=== PATIENT | female | born 1940 | race Caucasian/White ===

== ENCOUNTER → 2017-12-15 | Outpatient (CLI) | payer MEDICARE ==
[~2017-12-15] MED LIST: AMLO5 PO; ASPI81CH PO; ATOR40TA PO; CLOP75; CLOP75 PO; Cilostazol50 MG PO; ESCI10; ESCI10 PO; LAVAP17G PO; PANT40 PO; Percocet 5-3251 EACH PO; ROSU10TA; Roxicet 5-3251 EACH PO; Senna8.6 MG PO; Zofran Odt8 MG SL
[2017-12-16 04:00] LABS: Source Cervix
== END | disposition home or self-care (01) ==
LOC: LAB SHORT 11:18 → LAB 11:18
PROVIDERS: Obstetrics & Gynecology
DX: Z12.4 Encounter for screening for malignant neoplasm of cervix (principal)
CPT/HCPCS: G0123

== ENCOUNTER 2019-01-06 19:15 | Emergency (ER) | payer MEDICARE ==
[~2019-01-06] VITALS: Ht 172.7 cm; Wt 71.2 kg
== END 2019-01-06 21:19 | disposition home or self-care (01) ==
LOC: ER 19:15
DX: S06.9X9A Unspecified intracranial injury with loss of consciousness of unspecified duration, initial encounter (principal); S01.112A Laceration without foreign body of left eyelid and periocular area, initial encounter; W18.30XA Fall on same level, unspecified, initial encounter; Z91.013 Allergy to seafood; Z88.1 Allergy status to other antibiotic agents; Z91.048 Other nonmedicinal substance allergy status; Z79.899 Other long term (current) drug therapy; Z79.82 Long term (current) use of aspirin; Z87.891 Personal history of nicotine dependence
CPT/HCPCS: 12011; 70450; 72125; 99284-25

== ENCOUNTER 2019-01-16 09:58 | Emergency (ER) | payer MEDICARE ==
[~2019-01-16] VITALS: Ht 170.2 cm; Wt 70.8 kg
[2019-01-16] MEDS ORDERED: ROSU5 PO (11:48)
[2019-01-16] MEDS ORDERED: LISI5 PO (11:48)
[2019-01-16] MEDS ORDERED: DULO30 PO (11:48)
[2019-01-16] MEDS ORDERED: CLOP75 PO (11:49)
[2019-01-16] MEDS ORDERED: Norco 5-325 Ta1 EACH PO (11:49)
[2019-01-16] MEDS ORDERED: Percocet 5-3251 EACH PO (12:46)
== END 2019-01-16 13:12 | disposition home or self-care (01) ==
LOC: ER 09:58
DX: M16.11 Unilateral primary osteoarthritis, right hip (principal); Z91.013 Allergy to seafood; Z88.8 Allergy status to other drugs, medicaments and biological substances; Z88.1 Allergy status to other antibiotic agents; Z79.899 Other long term (current) drug therapy; Z79.82 Long term (current) use of aspirin; Z87.891 Personal history of nicotine dependence
CPT/HCPCS: 73502; 73610; 99283-25

== ENCOUNTER 2019-02-16 08:51 | Inpatient (IN) | payer MEDICARE ==
[~2019-02-16] VITALS: Ht 167.6 cm; Wt 72.0 kg
[~2019-02-16 08:51] MED LIST changes: +DULO30 PO; +LISI5 PO; +Norco 5-325 Ta1 EACH PO; +ROSU5 PO
[2019-02-16] MEDS ORDERED: MAGOXI400 PO (09:40)
[2019-02-16] MEDS ORDERED: CYAN1000I IM (09:41)
[2019-02-16] MEDS ORDERED: CHOL10002 PO (09:41)
--- NOTE | 2019-02-16 10:14 | NUR ---
History, Chart, Medications and Allergies reviewed before start of procedure. Lungs clear T/O to Auscultation.
--- NOTE | 2019-02-16 19:18 | NUR ---
SHIFT SUMMARY PT HAS DONE WELL POST OP BUT WAS DROWSY INITIALLY. UP TO BATHROOM AND CHAIR FOR DINNER.
[2019-02-17 05:33] LABS: BASOPHILS ABSOLUTE AUTO 0.01 K/mm3 (0.00-0.23); BASOPHILS PERCENT AUTO 0 % (0-2); EOSINOPHILS ABSOLUTE AUTO 0.02 K/mm3 (0.00-0.68); EOSINOPHILS PERCENT AUTO 0 % (0-6); Hematocrit 30.1 % (33.0-51.0); Hemoglobin 9.6 g/dL (11.5-16.0); IMMATURE GRAN ABSOLUTE AUTO 0.04 K/mm3 (0.00-0.10); IMMATURE GRAN PERCENT AUTO 1 % (0-1); LYMPHOCYTES ABSOLUTE AUTO 1.35 K/mm3 (0.84-5.20); LYMPHOCYTES PERCENT AUTO 16 % (21-46); MONOCYTES ABSOLUTE AUTO 0.89 K/mm3 (0.16-1.47); MONOCYTES PERCENT AUTO 10 % (4-13); Mean Corpuscular HGB Conc 31.9 g/dL (31.5-36.5); Mean Corpuscular Volume 100 fL (80-100); Mean Platelet Volume 8.9 fL (9.1-12.4); NEUTROPHILS ABSOLUTE AUTO 6.36 K/mm3 (1.96-9.15); NEUTROPHILS PERCENT AUTO 73 % (41-73); Platelet Count 217 K/mm3 (150-400); RDW Coefficient Variation 12.9 % (11.7-14.2); RDW Standard Deviation 47.7 fL (35.1-46.3); White Blood Cell Count 8.67 K/mm3 (4.00-11.30)
[2019-02-17 05:37] LABS: Magnesium, Blood 2.1 mg/dL (1.6-2.4)
[2019-02-17 05:38] LABS: Anion Gap 5 mmol/L (6-16); Blood Urea Nitrogen 16 mg/dL (8-24); Bun/Creatinine Ratio 34.6 (12.0-20.0); CO2, Blood 26 mmol/L (21-32); Calcium, Blood 8.3 mg/dL (8.5-10.1); Chloride, Blood 108 mmol/L (98-108); Creatinine, Blood 0.46 mg/dL (0.40-1.00); Glomerular Filtration Rate >60 (60-); Glucose, Blood 102 mg/dL (70-99); Potassium, Blood 4.1 mmol/L (3.5-5.5); Sodium, Blood 139 mmol/L (136-145)
--- NOTE | 2019-02-17 06:20 | NUR ---
SHIFT SUMMARY PT POD#1 RIGHT ABDIAZIZ. AAOX4. DISCOMFORT CONTROLLED WITH 5MG ROXICODONE Q4-5P. NO NAUSEA/EMESIS. DRESSING TO RIGHT HIP C/D/I. PT UP IN HALLS TO AMBULATE X3 THIS SHIFT, SBA WITH FWW. PT UP TO CHAIR THIS AM FOR BREAKFAST. NADN. CALL LIGHT IN REACH.
[2019-02-17] MEDS ORDERED: ASPI325EC PO (12:27)
[2019-02-17] MEDS ORDERED: Percocet 5-3251 EACH PO (12:29)
--- NOTE | 2019-02-17 13:19 | NUR ---
DISCHARGE SUMMARY PT A&OX4, VSS, LEFT FLOOR VIA WC WITH GRAPHIC DESIGN INTERN, TO GO HOME WITH S.O. WITH ALL PERSONAL POSSESSIONS INCLUDING DISCHARGE PACKET W/1 NARC SCRIPT, 1 ASA SCRIPT. DC INSTRUCTIONS PROVIDED. PT REP UNDERSTANDING THOSE INSTRUCTIONS INCLUDING DRESSING CHANGES, 2 WK FU WITH SG, PHYSICAL THERAPY STARTS THURSDAY, SHOWER OK, NO TUB/JACUZZI, SHORT FREQ AMBULATION W/FWW, ICE AND ELEVATE AT REST. IV DC'D.
--- NOTE | 2019-02-21 09:37 | NUR ---
02/21/19 0937 Manuela Bernal VERIFICATIONS: EDIT CHART.
== END 2019-02-17 12:49 | disposition home or self-care (01) | DRG 470 ==
LOC: SURS 08:51 → PRE IP 10:30 → SURS 14:41
PROVIDERS: ADMIT Orthopaedic Surgery
PROC: 0SR904A Replacement of Right Hip Joint with Ceramic on Polyethylene Synthetic Substitute, Uncemented, Open Approach (ICD-10-PCS; principal; 2019-02-15)
DX: M16.11 Unilateral primary osteoarthritis, right hip (principal); G35 Multiple sclerosis; E78.5 Hyperlipidemia, unspecified; E78.00 Pure hypercholesterolemia, unspecified; Z88.8 Allergy status to other drugs, medicaments and biological substances; Z91.013 Allergy to seafood; Z95.1 Presence of aortocoronary bypass graft
CPT/HCPCS: 72170; 80048; 83735; 85025; 88300; 97116; 97162; 97165; 97530; 97535; C1713; C1776; J0171; J0690; J0735; J1100; J1885; J2250; J2405; J2704; J2795; J3010; J7120

== ENCOUNTER 2020-06-16 13:25 | Observation (INO) | payer MEDICARE, OTHER ==
[~2020-06-16] VITALS: Ht 170.2 cm; Wt 72.4 kg
[~2020-06-16 13:25] MED LIST changes: +ASPI325EC PO; +MAGOXI400 PO; +VITAMIN D31000 UNI1 PO; +Vitamin B-121000 MCG PO
[2020-06-16 13:54] LABS: BASOPHILS ABSOLUTE AUTO 0.05 K/mm3 (0.00-0.23); BASOPHILS PERCENT AUTO 1 % (0-2); EOSINOPHILS ABSOLUTE AUTO 0.26 K/mm3 (0.00-0.68); EOSINOPHILS PERCENT AUTO 3 % (0-6); Hematocrit 43.2 % (33.0-51.0); Hemoglobin 14.1 g/dL (11.5-16.0); IMMATURE GRAN ABSOLUTE AUTO 0.02 K/mm3 (0.00-0.10); IMMATURE GRAN PERCENT AUTO 0 % (0-1); LYMPHOCYTES ABSOLUTE AUTO 3.12 K/mm3 (0.84-5.20); LYMPHOCYTES PERCENT AUTO 38 % (21-46); MONOCYTES ABSOLUTE AUTO 0.55 K/mm3 (0.16-1.47); MONOCYTES PERCENT AUTO 7 % (4-13); Mean Corpuscular HGB 29.7 pg (26.0-34.0); Mean Corpuscular HGB Conc 32.6 g/dL (31.5-36.5); Mean Corpuscular Volume 91 fL (80-100); Mean Platelet Volume 8.8 fL (9.1-12.4); NEUTROPHILS ABSOLUTE AUTO 4.19 K/mm3 (1.96-9.15); NEUTROPHILS PERCENT AUTO 51 % (41-73); Platelet Count 284 K/mm3 (150-400); RDW Coefficient Variation 13.3 % (11.7-14.2); RDW Standard Deviation 45.2 fL (35.1-46.3); Red Blood Cell Count 4.75 M/mm3 (3.80-5.20); White Blood Cell Count 8.19 K/mm3 (4.00-11.30)
[2020-06-16 14:19] LABS: Alanine Aminotransfer (ALT/SGP 28 U/L (12-78); Albumin, Blood 3.9 g/dL (3.4-5.0); Albumin/Globulin Ratio 1.1 (0.8-1.8); Alk Phos 108 U/L (50-136); Anion Gap 12 mmol/L (6-16); Aspartate Aminotrans (AST/SGOT 20 U/L (12-37); Bilirubin, Total 0.5 mg/dL (0.1-1.0); Blood Urea Nitrogen 22 mg/dL (8-24); Bun/Creatinine Ratio 37.7 (12.0-20.0); CO2, Blood 22 mmol/L (21-32); Calcium, Blood 9.3 mg/dL (8.5-10.1); Chloride, Blood 102 mmol/L (98-108); Creatinine, Blood 0.58 mg/dL (0.40-1.00); Globulin, Blood 3.6 g/dL (2.2-4.0); Glomerular Filtration Rate >60 (60-); Glucose, Blood 96 mg/dL (70-99); Sodium, Blood 136 mmol/L (136-145); Total Protein, Blood 7.5 g/dL (6.4-8.2); Troponin I <0.015 ng/mL (0.000-0.040)
[2020-06-16] MEDS ORDERED: CHLO25B PO (19:02)
[2020-06-16] MEDS ORDERED: PLAVIX75 MG PO (19:03)
--- NOTE | 2020-06-17 04:26 | NUR ---
SHIFT SUMMARY PT ARRIVED TO UNIT FROM ED VIA STRETCHER @ 2044. TRANSFERRED FROM STRETCHER TO STANDING SCALE THEN TO BED IND/SBA. NO COMPLAINTS OF SOB OR CHEST PAIN FOR THIS RN. SLEPT T/O SHIFT. NO ACUTE CHANGES THIS SHIFT. PT IS LAYING IN BED WITH EYES CLOSED, EVEN AND UNLABORED RESPIRATIONS. BED IN LOWERED POSITION WITH CALL LIGHT AND PERSONAL ITEM WITHIN REACH. NO APPARENT NEEDS OR DISTRESS AT THIS TIME. WILL CONTINUE TO MONITOR UNTIL REPORT GIVEN TO DAY RN.
[2020-06-17 04:42] LABS: Anion Gap 6 mmol/L (6-16); Blood Urea Nitrogen 22 mg/dL (8-24); Bun/Creatinine Ratio 31.7 (12.0-20.0); CO2, Blood 29 mmol/L (21-32); Calcium, Blood 8.8 mg/dL (8.5-10.1); Chloride, Blood 104 mmol/L (98-108); Glomerular Filtration Rate >60 (60-); Glucose, Blood 109 mg/dL (70-99); Potassium, Blood 3.8 mmol/L (3.5-5.5); Sodium, Blood 139 mmol/L (136-145); Troponin I <0.015 ng/mL (0.000-0.040)
--- NOTE | 2020-06-17 15:31 | NUR ---
SHIFT SUMMARY PT IS A/O X 4 WITH NO C/O PAIN. SHE DOES REPORT DYSPNEA ON EXERTION THIS MORNING BUT REPORTS FEELING "BETTER" THIS AFTERNOON. SHE COMPLETED HER STRESS TEST AND IS AWAITING THE DOCTOR TO COME REVIEW THE RESULTS WITH HER. SHE IS USING THE BEDSIDE COMMODE. CATTLE FEEDER REPORTS SINUS KAMILA. PT S.O. WAS AT THE BEDSIDE FOR THE AFTERNOON BUT HAS LEFT FOR THE DAY. HE REQUESTED THAT DR URBINA CALL HIM ABOUT THE STRESS TEST RESULTS WELL. DR URBINA WAS NOTIFIED THAT THE PT WAS WAITING TO SPEAK TO HER AND STATED SHE WOULD BE UP TO SEE HER. SHE IS ABLE TO MAKE HER NEEDS KNOWN AND CALLS APPROPRIATELY.
[2020-06-17] MEDS ORDERED: Vitamin D2000 UNIT PO (16:40)
[2020-06-17] MEDS ORDERED: OMEP20ER PO (16:41)
[2020-06-17] MEDS ORDERED: PANT20 PO (16:42)
--- NOTE | 2020-06-17 16:49 | NUR ---
PT DCD HOME. HER S.O. IS PICKING HER UP. MED REC FAXED TO PHARMACY ON FILE. PT WILL SCHEDULE HER F/U APPT. ALL INSTRUCTIONS REVIEWED WITH THE PT. PT PULLED HER OWN IVS OUT, PT EDUCATION WAS COMPLETED RE RISKS VS. BENEFITS OF THIS. PT REPORTS THAT SHE USED TO "WORK FOR THE [employer] SO I KNOW ABOUT THESE THINGS". PT HAS NO QUESTIONS. SHE PACKED HER OWN BELONGINGS. AND WAS ASSISTED DOWNSTAIRS BY HER FUR TRAPPER. PT STABLE UPON DC.
== END 2020-06-17 16:57 | disposition home or self-care (01) ==
LOC: ER 13:25 → MEDS 13:26
PROVIDERS: Physician Assistant; ADMIT Internal Medicine
DX: R07.9 Chest pain, unspecified (principal); I10 Essential (primary) hypertension; E87.6 Hypokalemia; K44.9 Diaphragmatic hernia without obstruction or gangrene; Z95.1 Presence of aortocoronary bypass graft; E78.5 Hyperlipidemia, unspecified; Z20.828 Contact with and (suspected) exposure to other viral communicable diseases; Z87.891 Personal history of nicotine dependence; Z79.899 Other long term (current) drug therapy; Z66 Do not resuscitate; Z88.8 Allergy status to other drugs, medicaments and biological substances; Z91.013 Allergy to seafood
CPT/HCPCS: 36415; 71045; 71260; 78452; 80048; 80053; 83880; 84484; 85025; 85379; 93005; 93010; 93017; 96365; 96366; 99285-25; A9270-GY; A9500; G0008; G0378; J0706; J2785; J3480; J7040; Q2038; Q9967; U0003

== ENCOUNTER 2020-08-21 10:52 | Day surgery (SDC) | payer MEDICARE ==
[~2020-08-21] VITALS: Ht 172.7 cm; Wt 73.9 kg
[~2020-08-21 10:52] MED LIST changes: +Aspir 8181 MG PO; +CHLO25B PO; +DIURIL250 MG/5 M PO; +Klor-Con-Ef 2525 MEQ PO; +OMEP20ER PO; +PANT20 PO; +PLAVIX75 MG PO; +Vitamin D2000 UNIT PO
== END 2020-08-21 13:56 | disposition home or self-care (01) ==
LOC: ORSCSDS 10:52
PROVIDERS: Surgery
PROC: 0DBM8ZX Excision of Descending Colon, Via Natural or Artificial Opening Endoscopic, Diagnostic (ICD-10-PCS; principal; 2020-08-21 13:00)
PROC: 0DB48ZX Excision of Esophagogastric Junction, Via Natural or Artificial Opening Endoscopic, Diagnostic (ICD-10-PCS; principal; 2020-08-21 13:00)
PROC: 0DB78ZX Excision of Stomach, Pylorus, Via Natural or Artificial Opening Endoscopic, Diagnostic (ICD-10-PCS; principal; 2020-08-21 13:00)
DX: K44.9 Diaphragmatic hernia without obstruction or gangrene (principal); K29.70 Gastritis, unspecified, without bleeding; Z12.11 Encounter for screening for malignant neoplasm of colon; Z86.010 Personal history of colon polyps; D12.4 Benign neoplasm of descending colon; Z87.891 Personal history of nicotine dependence; G35 Multiple sclerosis; E78.5 Hyperlipidemia, unspecified; E78.00 Pure hypercholesterolemia, unspecified; Z79.899 Other long term (current) drug therapy; Z79.82 Long term (current) use of aspirin
CPT/HCPCS: 88305; 88342; J2704; J7040; J7120

== ENCOUNTER 2020-09-26 10:20 | Day surgery (SDC) | payer MEDICARE ==
[~2020-09-26] VITALS: Ht 170.2 cm; Wt 77.9 kg
[~2020-09-26 10:20] MED LIST changes: +ACET325 PO; +ASPIR 8181 M1 PO; +B12 SC; +Coq-1030 MG PO; +[UNRECOGNIZED DRUG - OTHER] SC
[2020-09-26] MEDS ORDERED: MAGNESIUM OXID500 MG PO (11:12)
[2020-09-26] MEDS ORDERED: [UNRECOGNIZED DRUG - OTHER] (11:13)
[2020-09-26] MEDS ORDERED: COLLAGEN (11:13)
--- NOTE | 2020-09-26 11:22 | NUR ---
Ambulatory in Day Surgery History, Chart, Medications and Allergies reviewed before start of procedure. Lungs clear T/O to Auscultation. Patient confirms NPO status and agrees with scheduled surgery. Patient States Post-Procedure ride home has been arranged.
[2020-09-26 11:50] LABS: Anion Gap 6 mmol/L (6-16); Blood Urea Nitrogen 9 mg/dL (8-24); Bun/Creatinine Ratio 17.9 (12.0-20.0); CO2, Blood 30 mmol/L (21-32); Calcium, Blood 7.6 mg/dL (8.5-10.1); Chloride, Blood 100 mmol/L (98-108); Glomerular Filtration Rate >60 (60-); Glucose, Blood 197 mg/dL (70-99); Potassium, Blood 3.7 mmol/L (3.5-5.5); Sodium, Blood 136 mmol/L (136-145)
--- NOTE | 2020-09-26 15:33 | NUR ---
1505- PT LUNGS CLEAR UPPER LOBES BUT DOES HAVE SOME RALES IN BILATERAL BASES.
--- NOTE | 2020-09-26 17:50 | NUR ---
PT sitting up in chair, post op VS complete and stable. pt has voided, denies abd/esophogeal pain, has remained NPO her MD orders, provided with mouth moisteners. lap sites x 5 C/D/I. pt's has visited this shift.
--- NOTE | 2020-09-27 06:24 | NUR ---
SHIFT SUMMARY POD#1. AAOX4. PT DENIES PAIN/NAUSEA T/O NIGHT. ABD INCISIONS WITH GAUZE C/D/I. INDEPENDENT IN ROOM. NPO THIS AM. IVF PER ORDERS + PT UP TO VOID IN RESTROOM X4 THIS AM. PT RESTED WELL OVER NIGHT WITH CALL LIGHT IN REACH.
[2020-09-27] MEDS ORDERED: ONDA4ODT (08:11)
[2020-09-27] MEDS ORDERED: METO5A PO (08:11)
--- NOTE | 2020-09-27 14:02 | NUR ---
DISCHARGE SUMMARY PT A&OX4, VSS, INDEPENDENT IN ROOM, VOIDING WELL, JACOB FULL LIQUID DIET. WALKED OFF FLOOR WITH FRIEND, TO GO HOME, WITH ALL PERSONAL POSSESSIONS INCLUDING DC PACKET, 2 SCRIPTS (JOSE AND JORGE). DC INSTRUCTIONS PROVIDED. PT REP UNDERSTANDING THOSE INSTRUCTIONS. IV DC'D.
== END 2020-09-27 13:08 | disposition home or self-care (01) ==
LOC: ORSCMMR 10:20 → SURS 15:26
PROVIDERS: Surgery
PROC: 0BQT4ZZ Repair Diaphragm, Percutaneous Endoscopic Approach (ICD-10-PCS; principal; 2020-09-26 11:45)
PROC: 0DV44ZZ Restriction of Esophagogastric Junction, Percutaneous Endoscopic Approach (ICD-10-PCS; principal; 2020-09-26 11:45)
DX: K66.0 Peritoneal adhesions (postprocedural) (postinfection) (principal); E78.5 Hyperlipidemia, unspecified; I05.0 Rheumatic mitral stenosis; Z79.899 Other long term (current) drug therapy; Z79.82 Long term (current) use of aspirin
CPT/HCPCS: 80048; A9270; J0690; J1100; J1885; J2250; J2405; J2704; J3010; J7120

== ENCOUNTER 2021-04-15 15:51 | Emergency (ER) | payer MEDICARE ==
[~2021-04-15] VITALS: Ht 170.2 cm; Wt 69.4 kg
[~2021-04-15 15:51] MED LIST changes: +COLLAGEN; +MAGNESIUM OXID500 MG PO; +METO5A PO; +ONDA4ODT; +[UNRECOGNIZED DRUG - OTHER]
[2021-04-15 17:07] LABS: BASOPHILS ABSOLUTE AUTO 0.04 K/mm3 (0.00-0.23); BASOPHILS PERCENT AUTO 1 % (0-2); EOSINOPHILS ABSOLUTE AUTO 0.09 K/mm3 (0.00-0.68); EOSINOPHILS PERCENT AUTO 1 % (0-6); Hematocrit 34.7 % (33.0-51.0); Hemoglobin 11.5 g/dL (11.5-16.0); IMMATURE GRAN ABSOLUTE AUTO 0.04 K/mm3 (0.00-0.10); IMMATURE GRAN PERCENT AUTO 1 % (0-1); LYMPHOCYTES ABSOLUTE AUTO 1.17 K/mm3 (0.84-5.20); LYMPHOCYTES PERCENT AUTO 15 % (21-46); MONOCYTES ABSOLUTE AUTO 0.63 K/mm3 (0.16-1.47); MONOCYTES PERCENT AUTO 8 % (4-13); Mean Corpuscular HGB 30.9 pg (26.0-34.0); Mean Corpuscular HGB Conc 33.1 g/dL (31.5-36.5); Mean Corpuscular Volume 93 fL (80-100); Mean Platelet Volume 9.5 fL (9.1-12.4); NEUTROPHILS PERCENT AUTO 75 % (41-73); Platelet Count 335 K/mm3 (150-400); RDW Coefficient Variation 13.5 % (11.7-14.2); RDW Standard Deviation 46.5 fL (35.1-46.3); Red Blood Cell Count 3.72 M/mm3 (3.80-5.20); White Blood Cell Count 7.77 K/mm3 (4.00-11.30)
[2021-04-15 17:36] LABS: Alanine Aminotransfer (ALT/SGP 28 U/L (12-78); Albumin, Blood 3.2 g/dL (3.4-5.0); Albumin/Globulin Ratio 0.7 (0.8-1.8); Alk Phos 128 U/L (50-136); Anion Gap 9 mmol/L (6-16); Aspartate Aminotrans (AST/SGOT 22 U/L (12-37); Bilirubin, Total 0.8 mg/dL (0.1-1.0); Blood Urea Nitrogen 12 mg/dL (8-24); Bun/Creatinine Ratio 17.7 (12.0-20.0); CO2, Blood 24 mmol/L (21-32); Calcium, Blood 9.2 mg/dL (8.5-10.1); Chloride, Blood 103 mmol/L (98-108); Creatinine, Blood 0.68 mg/dL (0.40-1.00); Globulin, Blood 4.4 g/dL (2.2-4.0); Glomerular Filtration Rate >60 (60-); Glucose, Blood 125 mg/dL (70-99); Potassium, Blood 3.3 mmol/L (3.5-5.5); Sodium, Blood 136 mmol/L (136-145); Total Protein, Blood 7.6 g/dL (6.4-8.2)
[2021-04-15 17:45] LABS: Troponin I <0.015 ng/mL (0.000-0.040)
[2021-04-15 17:49] LABS: SARS-Cov-2 (COVID-19) PCR, MMC POSITIVE (NEGATIVE)
== END 2021-04-15 22:50 | disposition home or self-care (01) ==
LOC: ER 15:51
PROVIDERS: Physician Assistant
DX: U07.1 COVID-19 (principal); G35 Multiple sclerosis; Z95.1 Presence of aortocoronary bypass graft; Z87.891 Personal history of nicotine dependence; Z79.899 Other long term (current) drug therapy
CPT/HCPCS: 36415; 71045; 80053; 83880; 84484; 85025; 93005; 93010; 99284-25; J7030; M0243; Q0243; U0004

== ENCOUNTER → 2021-04-30 | Outpatient (CLI) | payer MEDICARE | END | disposition home or self-care (01) | LOC: LAB SHORT 13:45 | DX: D48.5 Neoplasm of uncertain behavior of skin (principal) | CPT/HCPCS: 88305 ==

== ENCOUNTER 2021-06-29 23:34 | Inpatient (IN) | payer MEDICARE ==
[~2021-06-29] VITALS: Ht 167.6 cm; Wt 77.8 kg
[2021-06-30 00:48] LABS: Alanine Aminotransfer (ALT/SGP 17 U/L (12-78); Albumin, Blood 3.3 g/dL (3.4-5.0); Albumin/Globulin Ratio 0.9 (0.8-1.8); Alk Phos 132 U/L (50-136); Anion Gap 8 mmol/L (6-16); Aspartate Aminotrans (AST/SGOT 23 U/L (12-37); Bilirubin, Total 0.3 mg/dL (0.1-1.0); Blood Urea Nitrogen 21 mg/dL (8-24); Bun/Creatinine Ratio 32.6 (12.0-20.0); CO2, Blood 25 mmol/L (21-32); Calcium, Blood 8.9 mg/dL (8.5-10.1); Chloride, Blood 108 mmol/L (98-108); Creatinine, Blood 0.65 mg/dL (0.40-1.00); Globulin, Blood 3.7 g/dL (2.2-4.0); Glomerular Filtration Rate >60 (60-); Glucose, Blood 143 mg/dL (70-99); Potassium, Blood 3.7 mmol/L (3.5-5.5); Sodium, Blood 141 mmol/L (136-145); Troponin I <0.015 ng/mL (0.000-0.040)
[2021-06-30 00:57] LABS: BASOPHILS ABSOLUTE AUTO 0.05 K/mm3 (0.00-0.23); BASOPHILS PERCENT AUTO 1 % (0-2); RDW Coefficient Variation 13.7 % (11.7-14.2)
[2021-06-30 01:03] LABS: EOSINOPHILS ABSOLUTE AUTO 0.12 K/mm3 (0.00-0.68); EOSINOPHILS PERCENT AUTO 2 % (0-6); Hemoglobin 9.3 g/dL (11.5-16.0); IMMATURE GRAN ABSOLUTE AUTO 0.04 K/mm3 (0.00-0.10); IMMATURE GRAN PERCENT AUTO 1 % (0-1); LYMPHOCYTES ABSOLUTE AUTO 1.36 K/mm3 (0.84-5.20); LYMPHOCYTES PERCENT AUTO 18 % (21-46); MONOCYTES ABSOLUTE AUTO 0.51 K/mm3 (0.16-1.47); MONOCYTES PERCENT AUTO 7 % (4-13); Mean Corpuscular HGB 26.8 pg (26.0-34.0); Mean Corpuscular Volume 87 fL (80-100); Mean Platelet Volume 9.4 fL (9.1-12.4); NEUTROPHILS ABSOLUTE AUTO 5.53 K/mm3 (1.96-9.15); NEUTROPHILS PERCENT AUTO 73 % (41-73); Platelet Count 319 K/mm3 (150-400); RDW Standard Deviation 43.3 fL (35.1-46.3); Red Blood Cell Count 3.47 M/mm3 (3.80-5.20); White Blood Cell Count 7.61 K/mm3 (4.00-11.30)
[2021-06-30 03:10] LABS: Ferritin, Serum 11 ng/mL (8-252); Iron Serum 30 ug/dL (50-170); Percent Saturation 5.7 % (15.0-50.0); Total Iron Binding Capacity 524 ug/dL (250-450)
[2021-06-30 03:33] LABS: Source, Urine Clean Catch
[2021-06-30 03:45] LABS: Bilirubin, Urine Neg (Neg); Blood, Urine Neg (Neg); Glucose Qualitative, Urine Neg (Neg); Ketones, Urine Neg (Neg); Leukocyte Esterase, Urine 1+ (Neg); Nitrite, Urine Neg (Neg); Protein, Urine 2+ (Neg); Specific Gravity, Urine 1.015 (1.003-1.022); Urobilinogen, Urine NORM (Normal)
[2021-06-30 03:49] LABS: Appearance, Urine Clear (Clear); Color, Urine Yellow (P-Yellow)
[2021-06-30 03:53] LABS: Bacteria Few /hpf; Red Blood Cells, Urine 0-2 /hpf (0-2); Squamous Epithelial Cells Not Seen /hpf (Few)
[2021-06-30 04:50] LABS: Influenza A, PCR NEGATIVE (NEGATIVE); Influenza B, PCR NEGATIVE (NEGATIVE); Resp Syncytial Virus, PCR NEGATIVE (NEGATIVE); SARS-Cov-2 (COVID-19) PCR, MMC NEGATIVE (NEGATIVE)
--- NOTE | 2021-06-30 06:22 | NUR ---
PT ARRIVAL TO UNIT AT APPROX 0420. NG TUBE IN PLACE ALREADY. PT HOOKED TO LIWS W/ NG TUBE. VSS PT DENIES PAIN/SOB/N/V. APPROX 100ML BROWN DRAINAGE FROM NG TUBE. NPO. IV FLUIDS RUNNING AT THIS TIME. BARBARA C THROUGHOUT
--- NOTE | 2021-06-30 17:32 | NUR ---
PATIENT CURRENTLY LYING IN BED WITH NO COMPLAINTS OF PAIN OR NAUSEA. PATIENT IS AAOX4. ABLE TO MAKE NEEDS AND WANTS KNOWN. NGT TO LIS WITH A TOTAL OF 1000ML OF LIGHT BROWN FLUID NOTED IN CANNISTER. PATIENT UP TO BESIDE COMMODE WITH MINIMAL ASSIST. NO SIGNS OR SYMPTOMS ACUTE DISTRESS NOTED. CALL LIGHT IN EASY REACH. PATIENT HAS HAD A FEW ICE CHIPS FOR COMFORT TODAY WITH PERMISSION OF DR RODARTE. DR RODARTE CONTACTED DR PARKER AT [facility] IN [place] AND HE HAS ACCEPTED PATIENT FOR TRANSFER WHEN BED IS AVAILABLE. PATIENT IS OKAY WITH THIS TRANSFER. WILL CONTINUE TO MONITOR.
[2021-07-01 04:28] LABS: BASOPHILS ABSOLUTE AUTO 0.04 K/mm3 (0.00-0.23); BASOPHILS PERCENT AUTO 1 % (0-2); EOSINOPHILS ABSOLUTE AUTO 0.38 K/mm3 (0.00-0.68); EOSINOPHILS PERCENT AUTO 6 % (0-6); Hematocrit 25.9 % (33.0-51.0); Hemoglobin 7.7 g/dL (11.5-16.0); IMMATURE GRAN ABSOLUTE AUTO 0.03 K/mm3 (0.00-0.10); IMMATURE GRAN PERCENT AUTO 1 % (0-1); LYMPHOCYTES ABSOLUTE AUTO 1.53 K/mm3 (0.84-5.20); LYMPHOCYTES PERCENT AUTO 24 % (21-46); MONOCYTES ABSOLUTE AUTO 0.47 K/mm3 (0.16-1.47); MONOCYTES PERCENT AUTO 7 % (4-13); Mean Corpuscular HGB 26.6 pg (26.0-34.0); Mean Corpuscular HGB Conc 29.7 g/dL (31.5-36.5); Mean Corpuscular Volume 89 fL (80-100); Mean Platelet Volume 8.7 fL (9.1-12.4); NEUTROPHILS ABSOLUTE AUTO 3.92 K/mm3 (1.96-9.15); NEUTROPHILS PERCENT AUTO 62 % (41-73); Platelet Count 249 K/mm3 (150-400); RDW Standard Deviation 45.7 fL (35.1-46.3); White Blood Cell Count 6.37 K/mm3 (4.00-11.30)
[2021-07-01 04:47] LABS: Alanine Aminotransfer (ALT/SGP 11 U/L (12-78); Albumin, Blood 2.6 g/dL (3.4-5.0); Albumin/Globulin Ratio 0.8 (0.8-1.8); Alk Phos 116 U/L (50-136); Anion Gap 3 mmol/L (6-16); Aspartate Aminotrans (AST/SGOT 14 U/L (12-37); Bilirubin, Total 0.4 mg/dL (0.1-1.0); Blood Urea Nitrogen 18 mg/dL (8-24); Bun/Creatinine Ratio 27.8 (12.0-20.0); CO2, Blood 28 mmol/L (21-32); Calcium, Blood 8.5 mg/dL (8.5-10.1); Chloride, Blood 111 mmol/L (98-108); Creatinine, Blood 0.65 mg/dL (0.40-1.00); Globulin, Blood 3.3 g/dL (2.2-4.0); Glomerular Filtration Rate >60 (60-); Glucose, Blood 104 mg/dL (70-99); Magnesium, Blood 2.2 mg/dL (1.6-2.4); Potassium, Blood 3.7 mmol/L (3.5-5.5); Sodium, Blood 142 mmol/L (136-145); Total Protein, Blood 5.9 g/dL (6.4-8.2)
--- NOTE | 2021-07-01 04:56 | NUR ---
AT 0245, ESMER FROM [facility] CALLED FOR AN UPDATE ON PT. UPDATE GIVEN. THERE IS NOT BED AVAILABLE AT THIS TIME. IF ANY ACUTE CHANGES OCCUR WITH PT, STAFF TO CALL [facility] AT: .
[2021-07-01 05:01] LABS: Cancer Antigen 19-9 5.1 U/mL (2.0-37.0); Carcinoembryonic Antigen 1.2 ng/mL (0.0-3.0)
--- NOTE | 2021-07-01 06:22 | NUR ---
PT IS A/OX3. ABLE TO MAKE HER NEEDS KNOWN. NO EVENTS OVER NIGHT. NPO. NGT TO LT JOVANYE, SET AT LIS W/RACHEL KATHLEEN. DENIED N/V. DENIED PAIN THROUGH OUT THE NIGHT. PIV TO RAC, SL. PIV TO LT HAND W/LR AT 150/HR. PT WILL TRANSFER TO [facility] WHEN BED IS AVAILABLE.
--- NOTE | 2021-07-01 17:44 | NUR ---
SHIFT SUMMARY PATIENT HAS DONE WELL TODAY. STILL WAITING FOR BED AT [facility]. IV NUTRITION STARTED TODAY, UNFORTUNATELY PICC LINE WAS NOT PLACED DUE TO NO PICC RN AVAILABLE. UP TO BSC AND CHAIR SEVERAL TIMES TODAY. NGT CONTINUES TO PRODUCE LIGHT BROWN OUTPUT. DENIES PAIN OR N/V T/O SHIFT. PLEASANT AND COOPERATIVE TOLERATED ICE CHIPS WELL.
--- NOTE | 2021-07-02 03:46 | NUR ---
SHIFT SUMMARY PT A&O X4 AND IN PLEASENT MOOD T/O SHIFT. INDEPENDENT TO COMODE NEEDED, VOIDING WELL. RESTED IN BED T/O MOST OF SHIFT. CALL LIGHT W/IN REACH. VSS. BT HYPOACTIVE IN UPPER Q'S, BT ABSENT IN LOWER Q'S. NG MIN OUTPUT. TOLLERATING CHIPS WELL. DENIES PAIN OR N/V.
[2021-07-02 04:01] LABS: BASOPHILS ABSOLUTE AUTO 0.04 K/mm3 (0.00-0.23); BASOPHILS PERCENT AUTO 1 % (0-2); EOSINOPHILS ABSOLUTE AUTO 0.37 K/mm3 (0.00-0.68); EOSINOPHILS PERCENT AUTO 6 % (0-6); Hematocrit 25.3 % (33.0-51.0); Hemoglobin 7.6 g/dL (11.5-16.0); IMMATURE GRAN ABSOLUTE AUTO 0.02 K/mm3 (0.00-0.10); IMMATURE GRAN PERCENT AUTO 0 % (0-1); LYMPHOCYTES ABSOLUTE AUTO 1.34 K/mm3 (0.84-5.20); LYMPHOCYTES PERCENT AUTO 21 % (21-46); MONOCYTES ABSOLUTE AUTO 0.58 K/mm3 (0.16-1.47); MONOCYTES PERCENT AUTO 9 % (4-13); Mean Corpuscular HGB 26.6 pg (26.0-34.0); Mean Corpuscular Volume 89 fL (80-100); NEUTROPHILS ABSOLUTE AUTO 4.17 K/mm3 (1.96-9.15); NEUTROPHILS PERCENT AUTO 64 % (41-73); Platelet Count 228 K/mm3 (150-400); RDW Standard Deviation 45.1 fL (35.1-46.3); Red Blood Cell Count 2.86 M/mm3 (3.80-5.20); White Blood Cell Count 6.52 K/mm3 (4.00-11.30)
[2021-07-02 04:27] LABS: Alanine Aminotransfer (ALT/SGP 11 U/L (12-78); Albumin, Blood 2.5 g/dL (3.4-5.0); Albumin/Globulin Ratio 0.7 (0.8-1.8); Alk Phos 114 U/L (50-136); Anion Gap 5 mmol/L (6-16); Aspartate Aminotrans (AST/SGOT 15 U/L (12-37); Bilirubin, Total 0.4 mg/dL (0.1-1.0); Blood Urea Nitrogen 14 mg/dL (8-24); Bun/Creatinine Ratio 27.2 (12.0-20.0); CO2, Blood 27 mmol/L (21-32); Calcium, Blood 8.3 mg/dL (8.5-10.1); Chloride, Blood 105 mmol/L (98-108); Creatinine, Blood 0.51 mg/dL (0.40-1.00); Globulin, Blood 3.5 g/dL (2.2-4.0); Glomerular Filtration Rate >60 (60-); Glucose, Blood 130 mg/dL (70-99); Magnesium, Blood 1.9 mg/dL (1.6-2.4); Phosphorus, Blood 3.6 mg/dL (2.5-4.9); Potassium, Blood 3.5 mmol/L (3.5-5.5); Sodium, Blood 137 mmol/L (136-145)
--- NOTE | 2021-07-02 14:20 | NUR ---
Pt. is in bed resting ,pastoral care visit is ntaken care of.
--- NOTE | 2021-07-02 18:46 | NUR ---
TRANSFER TO [facility]. REPORT CALLED TO AIDEE. PT AGREEABLE & EXCITED FOR TRANSER. DR RODARTE & DR NIELSEN NOTIFIED. NO CHANGES DURING MY SHIFT. DENIES N/V OR PAIN.
== END 2021-07-02 18:40 | disposition short-term general hospital (02) | DRG 381 ==
LOC: ER 23:34 → SURS 06-30 04:10
PROVIDERS: Emergency Medicine; Family Medicine; Surgery; ADMIT Internal Medicine
PROC: 0D9670Z Drainage of Stomach with Drainage Device, Via Natural or Artificial Opening (ICD-10-PCS; principal; 2021-06-30)
DX: K31.1 Adult hypertrophic pyloric stenosis (principal); K31.5 Obstruction of duodenum; E87.2 Acidosis; Z20.822 Contact with and (suspected) exposure to COVID-19; G35 Multiple sclerosis; K21.9 Gastro-esophageal reflux disease without esophagitis; D64.9 Anemia, unspecified; I10 Essential (primary) hypertension; I25.10 Atherosclerotic heart disease of native coronary artery without angina pectoris; Z28.21 Immunization not carried out because of patient refusal; Z91.013 Allergy to seafood; Z88.8 Allergy status to other drugs, medicaments and biological substances; Z79.899 Other long term (current) drug therapy; Z95.1 Presence of aortocoronary bypass graft; Z98.890 Other specified postprocedural states; Z87.891 Personal history of nicotine dependence
CPT/HCPCS: 0241U; 36415; 43752; 71250; 74177; 80053; 81001; 82378; 82728; 83540; 83550; 83605; 83690; 83735; 84100; 84484; 85025; 86301; 87086; 87147; 93005; 93010; 96374; 99285-25; A9270; J1650; J2270; J7120; Q9967

== ENCOUNTER 2021-07-28 13:23 | Inpatient (IN) | payer MEDICARE ==
[~2021-07-28] VITALS: Ht 170.2 cm; Wt 67.4 kg
[2021-07-28 13:50] LABS: BASOPHILS ABSOLUTE AUTO 0.04 K/mm3 (0.00-0.23); BASOPHILS PERCENT AUTO 0 % (0-2); EOSINOPHILS ABSOLUTE AUTO 0.06 K/mm3 (0.00-0.68); EOSINOPHILS PERCENT AUTO 1 % (0-6); Hemoglobin 12.1 g/dL (11.5-16.0); IMMATURE GRAN ABSOLUTE AUTO 0.04 K/mm3 (0.00-0.10); IMMATURE GRAN PERCENT AUTO 0 % (0-1); LYMPHOCYTES ABSOLUTE AUTO 2.16 K/mm3 (0.84-5.20); LYMPHOCYTES PERCENT AUTO 22 % (21-46); MONOCYTES ABSOLUTE AUTO 0.67 K/mm3 (0.16-1.47); MONOCYTES PERCENT AUTO 7 % (4-13); Mean Corpuscular HGB 26.7 pg (26.0-34.0); Mean Corpuscular HGB Conc 31.8 g/dL (31.5-36.5); Mean Corpuscular Volume 84 fL (80-100); Mean Platelet Volume 9.9 fL (9.1-12.4); NEUTROPHILS ABSOLUTE AUTO 6.72 K/mm3 (1.96-9.15); NEUTROPHILS PERCENT AUTO 69 % (41-73); Platelet Count 406 K/mm3 (150-400); RDW Coefficient Variation 17.5 % (11.7-14.2); RDW Standard Deviation 53.2 fL (35.1-46.3); Red Blood Cell Count 4.53 M/mm3 (3.80-5.20); White Blood Cell Count 9.69 K/mm3 (4.00-11.30)
[2021-07-28 14:35] LABS: Alanine Aminotransfer (ALT/SGP 204 U/L (12-78); Albumin, Blood 2.4 g/dL (3.4-5.0); Albumin/Globulin Ratio 0.5 (0.8-1.8); Anion Gap 8 mmol/L (6-16); Aspartate Aminotrans (AST/SGOT 104 U/L (12-37); Bilirubin, Total 1.6 mg/dL (0.1-1.0); Blood Urea Nitrogen 15 mg/dL (8-24); CO2, Blood 25 mmol/L (21-32); Calcium, Blood 9.1 mg/dL (8.5-10.1); Chloride, Blood 100 mmol/L (98-108); Creatinine, Blood 0.54 mg/dL (0.40-1.00); Glomerular Filtration Rate >60 (60-); Glucose, Blood 175 mg/dL (70-99); Potassium, Blood 3.8 mmol/L (3.5-5.5); Sodium, Blood 133 mmol/L (136-145); Total Protein, Blood 7.4 g/dL (6.4-8.2)
[2021-07-28 14:37] LABS: Source, Urine Catheter
[2021-07-28 14:41] LABS: Appearance, Urine Cloudy (Clear); Blood, Urine 2+ (Neg); Color, Urine Brown (P-Yellow); Glucose Qualitative, Urine Neg (Neg); Ketones, Urine Neg (Neg); Leukocyte Esterase, Urine 2+ (Neg); Nitrite, Urine Neg (Neg); Protein, Urine 3+ (Neg); Specific Gravity, Urine 1.025 (1.003-1.022); Urobilinogen, Urine 2+ (Normal)
[2021-07-28 14:45] LABS: Alk Phos 1329 U/L (50-136)
[2021-07-28 14:59] LABS: Bilirubin, Urine 1+ (Neg)
[2021-07-28 15:01] LABS: Bacteria Rare /hpf; Mucus Mod (0-Heavy); Squamous Epithelial Cells Rare /hpf (Few)
[2021-07-28 17:49] LABS: Influenza A, PCR NEGATIVE (NEGATIVE); Influenza B, PCR NEGATIVE (NEGATIVE); Resp Syncytial Virus, PCR NEGATIVE (NEGATIVE); SARS-Cov-2 (COVID-19) PCR, MMC NEGATIVE (NEGATIVE)
--- NOTE | 2021-07-29 03:13 | NUR ---
SHIFT SUMMARY PT ADMITTED FOR N/V AND DIARRHEA X2 WEEKS. S/P WHIPPLE PROCEDURE AT [facility] 2 WEEKS AGO. PT REPORTS SOME ABD SORENESS AT THE BEGINNING OF SHIFT, THEN STARTED HURTING (BACK AND ABD PAIN) AT MIDNIGHT, PAIN LEVEL WAS 10/10 AND NAUSEA BUT DENIES VOMITING. DILAUDID 1ML ADMINISTERED AND ZOFRAN. PAIN AND NAUSEA HAS IMPROVED. LR INFUSING AT 125ML/HR. MIDLINE INCISION FROM PREVIOUS SURGERY APPEARS CDI, OPEN TO AIR. 2 STERI STRIPS AT THE BUTTOM REGION OF HER MIDLINE INCISION. CLEAR LIQ DIET. TOLERATING PO INTAKE. AOX4. VSS. PT REPORTS MORE WEAKNESS, HX MS. 2 LIQ BM. INCONTINENT WITH ATTENDS IN PLACE. CALL LIGHT WITHIN REACH. WILL PROVIDE REPORT TO ONCOMING NURSE.
[2021-07-29 04:16] LABS: BASOPHILS ABSOLUTE AUTO 0.04 K/mm3 (0.00-0.23); BASOPHILS PERCENT AUTO 1 % (0-2); EOSINOPHILS ABSOLUTE AUTO 0.15 K/mm3 (0.00-0.68); EOSINOPHILS PERCENT AUTO 2 % (0-6); Hematocrit 32.2 % (33.0-51.0); Hemoglobin 10.1 g/dL (11.5-16.0); IMMATURE GRAN ABSOLUTE AUTO 0.04 K/mm3 (0.00-0.10); IMMATURE GRAN PERCENT AUTO 1 % (0-1); LYMPHOCYTES ABSOLUTE AUTO 1.85 K/mm3 (0.84-5.20); LYMPHOCYTES PERCENT AUTO 25 % (21-46); MONOCYTES ABSOLUTE AUTO 0.66 K/mm3 (0.16-1.47); MONOCYTES PERCENT AUTO 9 % (4-13); Mean Corpuscular HGB 26.6 pg (26.0-34.0); Mean Corpuscular HGB Conc 31.4 g/dL (31.5-36.5); Mean Corpuscular Volume 85 fL (80-100); Mean Platelet Volume 9.4 fL (9.1-12.4); NEUTROPHILS ABSOLUTE AUTO 4.62 K/mm3 (1.96-9.15); NEUTROPHILS PERCENT AUTO 63 % (41-73); Platelet Count 292 K/mm3 (150-400); RDW Coefficient Variation 17.8 % (11.7-14.2); RDW Standard Deviation 54.4 fL (35.1-46.3); Red Blood Cell Count 3.79 M/mm3 (3.80-5.20); White Blood Cell Count 7.36 K/mm3 (4.00-11.30)
[2021-07-29 05:45] LABS: Alanine Aminotransfer (ALT/SGP 140 U/L (12-78); Albumin/Globulin Ratio 0.5 (0.8-1.8); Alk Phos 1015 U/L (50-136); Anion Gap 5 mmol/L (6-16); Aspartate Aminotrans (AST/SGOT 56 U/L (12-37); Bilirubin, Total 1.1 mg/dL (0.1-1.0); Blood Urea Nitrogen 14 mg/dL (8-24); Bun/Creatinine Ratio 32.3 (12.0-20.0); CO2, Blood 29 mmol/L (21-32); Calcium, Blood 8.5 mg/dL (8.5-10.1); Chloride, Blood 103 mmol/L (98-108); Creatinine, Blood 0.43 mg/dL (0.40-1.00); Globulin, Blood 3.7 g/dL (2.2-4.0); Glomerular Filtration Rate >60 (60-); Glucose, Blood 129 mg/dL (70-99); Potassium, Blood 4.3 mmol/L (3.5-5.5); Sodium, Blood 137 mmol/L (136-145); Total Protein, Blood 5.7 g/dL (6.4-8.2)
--- NOTE | 2021-07-29 11:38 | NUR ---
PT REFUSED RECTAL TUBE THIS AM, CONT. TO HAVE FREQUENT LIQUID STOOLS, OOB TO BSC, TOLERATED WELL, REDNESS NOTED TO MARK ANAL AREA, PT C/O SORENESS IN AREA, BARRIER CREAM APPLIED.
--- NOTE | 2021-07-29 11:51 | NUR ---
[facility] CALLED TO FOLLOW UP REGARDING BED PLACEMENT, NO BEDS AVAILABLE AT THIS TIME BUT PT IS ON WAITING LIST FOR A BED PER FUNERAL DIRECTOR/EMBALMER/OWNER.
--- NOTE | 2021-07-29 14:56 | NUR ---
Pt resting in bed upon arrival. Pt reports 6/10 pain in her abdomen. She reports 6/10 is a tolerable level but will require pain medication if it becomes worse. Pt denies dyspnea at this time. She does report mild anxiety due to anticipation of being transfered and wanting procdedure perfomed as quickly as possible so she can go back home. Offered therapeutic listening as Pt being for 3 years. She reports no children and does not stay in contact with her siblings. She does express concerns of potentialy needing some assistance at home until she recovers from her procedure. She reports waiting on a bed in [place] or [facility]. Continued therapeutic listening and answered questions. Pt reports no other concerns at this time. Palliative Care will remain available.
--- NOTE | 2021-07-29 18:01 | NUR ---
CONT. TO HAVE LIQUID STOOLS T/O SHIFT, DR. APARICIO AWARE, ORDERED STOOL FOR GI PANEL & CDIFF, C/O ABD PAIN THIS AFTERNOON, MEDICATED WITH DILAUDID IV ORDERED WITH GOOD RELIEF, DENIES ANY NAUSEA, REFUSED CLEAR LIQUIDS TODAY, NO OTHER CHANGES THIS SHIFT.
--- NOTE | 2021-07-30 04:29 | NUR ---
SHIFT SUMMARY PT AWAITING BED AT [facility] FOR POSSIBLE BILIARY DUCT DILATION/STENT PLACEMENT. PT HAS REPORTED NO PAIN, BOWEL MOVEMENTS HAVE SLOWED THIS SHIFT. TRANSFERING TO BEDSIDE COMMODE WITH STAND BY ASSIST. VITAL SIGNS STABLE. [facility] CALLED FOR AN UPDATE ON PT AND REPORTED NO BEDS AT THIS TIME. TOLERATING CLEAR LIQ DIET. WILL REPORT TO ONCOMING RN.
[2021-07-30 09:18] LABS: Alanine Aminotransfer (ALT/SGP 97 U/L (12-78); Albumin/Globulin Ratio 0.5 (0.8-1.8); Alk Phos 920 U/L (50-136); Anion Gap 7 mmol/L (6-16); Aspartate Aminotrans (AST/SGOT 43 U/L (12-37); Bilirubin, Total 1.1 mg/dL (0.1-1.0); Blood Urea Nitrogen 8 mg/dL (8-24); Bun/Creatinine Ratio 18.3 (12.0-20.0); CO2, Blood 25 mmol/L (21-32); Calcium, Blood 8.4 mg/dL (8.5-10.1); Chloride, Blood 102 mmol/L (98-108); Creatinine, Blood 0.44 mg/dL (0.40-1.00); Globulin, Blood 3.8 g/dL (2.2-4.0); Glomerular Filtration Rate >60 (60-); Glucose, Blood 125 mg/dL (70-99); Potassium, Blood 3.9 mmol/L (3.5-5.5); Sodium, Blood 134 mmol/L (136-145); Total Protein, Blood 5.8 g/dL (6.4-8.2)
--- NOTE | 2021-07-30 13:03 | NUR ---
Pt. is lying in bed and is doing much better today, prayed for pt. and encouraged her.
[2021-07-30 17:16] LABS: Adenovirus F 40/41 Not Detected (NOT DETECT); Astrovirus Not Detected (NOT DETECT); Campylobacter Sp Not Detected (NOT DETECT); Cryptosporidium Not Detected (NOT DETECT); Cyclospora Cayetanensis Not Detected (NOT DETECT); E. Coli O157 Not Detected (NOT DETECT); Entamoeba Histolytica Not Detected (NOT DETECT); Enteroaggregative E. coli-EAEC Not Detected (NOT DETECT); Enteropathogenic E. coli-EPEC Not Detected (NOT DETECT); Enterotoxigenic E. coli-ETEC Not Detected (NOT DETECT); Giardia Lamblia Not Detected (NOT DETECT); Norovirus GI/GII Not Detected (NOT DETECT); Plesiomonas Shigelloides Not Detected (NOT DETECT); Rotavirus A Not Detected (NOT DETECT); Salmonella Sp Not Detected (NOT DETECT); Sapovirus Not Detected (NOT DETECT); Shiga Toxin-prod E. coli-STEC Not Detected (NOT DETECT); Shigella/Enteroin E. coli-EIEC Not Detected (NOT DETECT); Vibrio Cholerae Not Detected (NOT DETECT); Vibrio Sp Not Detected (NOT DETECT); Yersinia Enterocolitica Not Detected (NOT DETECT)
--- NOTE | 2021-07-30 17:54 | NUR ---
SHIFT SUMMARY PT IS 2 WEEKS POST-OP FROM A WHIPPLE PROCEDURE, SHE IS AWAITING TRANSFER TO [facility] FOR FURTHER TREATMENT. WAITING FOR A BED TO BECOME AVALIABLE AT THIS TIME. PAIN HAS BEEN MANAGED WITH IV DILAUDID X1 THIS SHIFT. PT HAS HAD FREQUENT STOOLS THAT ARE MIXED LIQUID AND FORMED/FIRM. PT IS INDEPENDENT BUT NEEDS ASSISTANCE WITH IV LINES OCCASIONALLY. PT IS TOLERATING CLEAR LIQUID. VSS. WILL MONITOR UNTIL REPORT TO URSULA ORTIZ.
--- NOTE | 2021-07-31 04:10 | NUR ---
SHIFT SUMMARY VITAL SIGNS STABLE. NO REPORTS OF ABDOMINAL PAIN THIS SHIFT. PT PASSED XL BOWEL MOVEMENT, SOLID YELLOW/WHITE IN COLOR, SINCE THEN BOWEL MOVEMENTS HAVE SLOWED. VOIDING WELL. IV FLUIDS RUNNING. HYPOACTIVE BOWEL TONES PRESENT. AWAITING BED AT [facility], WILL REPORT TO ONCOMING RN.
--- NOTE | 2021-07-31 17:33 | NUR ---
SHIFT SUMMARY PATIENT AOX4 ADMITTED WITH ABD PAIN AND DIARHEA. PATIENT HAS HAD FORMED BM ON SHIFT X2, UP TO COMMODE INDEPENDENT. PATIENT TOLERATED CRACKERS IN AFTERNOON, PER DR. ANJALI RAMSAY TO ADVANCE TO [facility] FOR DINNER. UPDATED PLAN FROM [facility] IS NO SURGICAL INTERVENTION AT THIS TIME, PLAN FOR DC TOMORROW AND FOLLOW UP OUTPATIENT WITH [facility]. VSS ON SHIFT, ONE TIME IV DILAUDID GIVEN FOR ABD PAIN ON SHIFT WITH RELIEF. REPORT GIVEN TO ANGEL LAGUNAS FOR CONTINUATION OF CARE AT 7571
--- NOTE | 2021-08-01 04:20 | NUR ---
SHIFT SUMMARY AOX4. VSS. DENIES ANY ABD PAIN OR N/V. SLEPT SOUNDLY T/O NIGHT. UP IND TO BS. NO BM THIS SHIFT. LR RUNNING @125ML/HR. PLAN TO DC HOME & FOLLOW UP OUTPATIENT c [facility]. CALL LIGHT IN REACH. WCTM UNTIL DAY NURSE ASSUMES CARE.
[2021-08-01 04:36] LABS: Hematocrit 28.1 % (33.0-51.0); Hemoglobin 9.1 g/dL (11.5-16.0); Mean Corpuscular HGB 29.4 pg (26.0-34.0); Mean Corpuscular HGB Conc 32.4 g/dL (31.5-36.5); Mean Platelet Volume 9.5 fL (9.1-12.4); Platelet Count 248 K/mm3 (150-400); RDW Coefficient Variation 19.8 % (11.7-14.2); RDW Standard Deviation 53.9 fL (35.1-46.3); White Blood Cell Count 4.31 K/mm3 (4.00-11.30)
[2021-08-01 05:42] LABS: Alanine Aminotransfer (ALT/SGP 59 U/L (12-78); Albumin, Blood 1.7 g/dL (3.4-5.0); Albumin/Globulin Ratio 0.5 (0.8-1.8); Alk Phos 726 U/L (50-136); Anion Gap 8 mmol/L (6-16); Aspartate Aminotrans (AST/SGOT 32 U/L (12-37); Bilirubin, Total 0.8 mg/dL (0.1-1.0); Blood Urea Nitrogen 5 mg/dL (8-24); Bun/Creatinine Ratio 12.3 (12.0-20.0); CO2, Blood 25 mmol/L (21-32); Calcium, Blood 8.1 mg/dL (8.5-10.1); Chloride, Blood 105 mmol/L (98-108); Creatinine, Blood 0.41 mg/dL (0.40-1.00); Globulin, Blood 3.3 g/dL (2.2-4.0); Glomerular Filtration Rate >60 (60-); Glucose, Blood 111 mg/dL (70-99); Potassium, Blood 3.3 mmol/L (3.5-5.5); Sodium, Blood 138 mmol/L (136-145)
[2021-08-01 05:54] LABS: Mean Corpuscular Volume 91 fL (80-100)
--- NOTE | 2021-08-01 12:00 | NUR ---
DISCHARGE PATIENT DISCHARGED IN STABLE CONDITION HOME. PATIENT VERBALIZED UNDERSTANDING OF DISCHARGE INSTRUCTIONS, PERIPHERAL IV REMOVED. ALL BELONGINGS PACKED AND SENT WT PATIENT, PATIENT TAKEN DOWN TO FRONT LOBBY VIA WHEELCHAIR WITH ASSISTANCE FROM [facility]
== END 2021-08-01 12:10 | disposition home or self-care (01) | DRG 446 ==
LOC: ER 13:23 → ERHOLD 13:24 → SURS 18:15
PROVIDERS: Emergency Medicine; Internal Medicine; ADMIT Internal Medicine
DX: K83.8 Other specified diseases of biliary tract (principal); E86.0 Dehydration; K59.00 Constipation, unspecified; G35 Multiple sclerosis; Z20.822 Contact with and (suspected) exposure to COVID-19; D63.8 Anemia in other chronic diseases classified elsewhere; I25.10 Atherosclerotic heart disease of native coronary artery without angina pectoris; Z91.013 Allergy to seafood; Z28.21 Immunization not carried out because of patient refusal; Z88.8 Allergy status to other drugs, medicaments and biological substances; Z79.899 Other long term (current) drug therapy; Z95.1 Presence of aortocoronary bypass graft; Z98.890 Other specified postprocedural states; Z87.891 Personal history of nicotine dependence
CPT/HCPCS: 0097U; 0241U; 36415; 51701; 74177; 80053; 81001; 85025; 85027; 87086; 93005; 93010; 94760; 94762; 96374; 96375; 99285-25; A9270; J1170; J2270; J2405; J7120; Q9967

== ENCOUNTER 2021-11-06 11:29 | Emergency (ER) | payer MEDICARE ==
[~2021-11-06] VITALS: Ht 170.2 cm; Wt 62.1 kg
== END 2021-11-06 13:45 | disposition home or self-care (01) ==
LOC: ER 11:29
DX: R94.5 Abnormal results of liver function studies (principal); R74.8 Abnormal levels of other serum enzymes; I10 Essential (primary) hypertension; I25.10 Atherosclerotic heart disease of native coronary artery without angina pectoris; Z91.013 Allergy to seafood; Z88.8 Allergy status to other drugs, medicaments and biological substances
CPT/HCPCS: 74177; 99283-25; Q9967

== ENCOUNTER 2021-12-03 11:07 | Emergency (ER) | payer MEDICARE ==
[~2021-12-03] VITALS: Ht 170.2 cm; Wt 61.7 kg
[2021-12-03 11:35] LABS: BASOPHILS ABSOLUTE AUTO 0.03 K/mm3 (0.00-0.23); BASOPHILS PERCENT AUTO 1 % (0-2); EOSINOPHILS ABSOLUTE AUTO 0.15 K/mm3 (0.00-0.68); EOSINOPHILS PERCENT AUTO 3 % (0-6); Hematocrit 35.2 % (33.0-51.0); Hemoglobin 11.5 g/dL (11.5-16.0); IMMATURE GRAN ABSOLUTE AUTO 0.01 K/mm3 (0.00-0.10); IMMATURE GRAN PERCENT AUTO 0 % (0-1); LYMPHOCYTES ABSOLUTE AUTO 1.78 K/mm3 (0.84-5.20); LYMPHOCYTES PERCENT AUTO 34 % (21-46); MONOCYTES ABSOLUTE AUTO 0.37 K/mm3 (0.16-1.47); MONOCYTES PERCENT AUTO 7 % (4-13); Mean Corpuscular HGB 32.3 pg (26.0-34.0); Mean Corpuscular HGB Conc 32.7 g/dL (31.5-36.5); Mean Corpuscular Volume 99 fL (80-100); Mean Platelet Volume 9.9 fL (9.1-12.4); NEUTROPHILS ABSOLUTE AUTO 2.91 K/mm3 (1.96-9.15); NEUTROPHILS PERCENT AUTO 55 % (41-73); Platelet Count 272 K/mm3 (150-400); RDW Coefficient Variation 17.1 % (11.7-14.2); RDW Standard Deviation 62.4 fL (35.1-46.3); Red Blood Cell Count 3.56 M/mm3 (3.80-5.20); White Blood Cell Count 5.25 K/mm3 (4.00-11.30)
[2021-12-03 12:12] LABS: Alanine Aminotransfer (ALT/SGP 266 U/L (12-78); Albumin, Blood 3.1 g/dL (3.4-5.0); Albumin/Globulin Ratio 0.8 (0.8-1.8); Alk Phos 579 U/L (50-136); Anion Gap 9 mmol/L (6-16); Aspartate Aminotrans (AST/SGOT 327 U/L (12-37); Bilirubin, Total 1.4 mg/dL (0.1-1.0); Blood Urea Nitrogen 10 mg/dL (8-24); Bun/Creatinine Ratio 22.8 (12.0-20.0); CO2, Blood 26 mmol/L (21-32); Calcium, Blood 9.6 mg/dL (8.5-10.1); Chloride, Blood 105 mmol/L (98-108); Creatinine, Blood 0.44 mg/dL (0.40-1.00); Globulin, Blood 4.1 g/dL (2.2-4.0); Glomerular Filtration Rate >60 (60-); Glucose, Blood 128 mg/dL (70-99); Magnesium, Blood 1.7 mg/dL (1.6-2.4); Potassium, Blood 3.4 mmol/L (3.5-5.5); Sodium, Blood 140 mmol/L (136-145); Total Protein, Blood 7.2 g/dL (6.4-8.2)
[2021-12-03 12:28] LABS: Source, Urine Clean Catch
[2021-12-03 12:31] LABS: Blood, Urine 1+ (Neg); Glucose Qualitative, Urine Neg (Neg); Ketones, Urine Neg (Neg); Leukocyte Esterase, Urine 2+ (Neg); Nitrite, Urine Neg (Neg); Protein, Urine 2+ (Neg); Urobilinogen, Urine 3+ (Normal)
[2021-12-03 12:41] LABS: Appearance, Urine Hazy (Clear); Color, Urine Amber (P-Yellow)
[2021-12-03 12:42] LABS: Bacteria Mod /hpf; Bilirubin, Urine 2+ (Neg); Mucus Heavy (0-Heavy); Squamous Epithelial Cells Rare /hpf (Few)
[2021-12-03] MEDS ORDERED: CEPH500 PO (14:59)
[2021-12-03] MEDS ORDERED: METO10 PO (14:59)
[2021-12-03] MEDS ORDERED: ONDA4ODT MM (14:59)
== END 2021-12-03 15:45 | disposition home or self-care (01) ==
LOC: ER 11:07
PROVIDERS: Physician Assistant
DX: N39.0 Urinary tract infection, site not specified (principal); E87.6 Hypokalemia; E83.42 Hypomagnesemia; R79.1 Abnormal coagulation profile; R79.89 Other specified abnormal findings of blood chemistry; R06.02 Shortness of breath; Z91.013 Allergy to seafood; Z88.8 Allergy status to other drugs, medicaments and biological substances
CPT/HCPCS: 36415; 70450; 71045; 71260; 80053; 81001; 83690; 83735; 83880; 84484; 85025; 85379; 87086; 93005; 93010; 96365; 96375; 99285-25; A9270; J0696; J2765; J3475; J7042; Q9967

== ENCOUNTER 2022-03-21 16:32 | Emergency (ER) | payer MEDICARE ==
[~2022-03-21] VITALS: Ht 170.2 cm; Wt 60.3 kg
[~2022-03-21 16:32] MED LIST changes: +CEPH500 PO; +METO10 PO; +ONDA4ODT MM
[2022-03-21 17:01] LABS: BASOPHILS ABSOLUTE AUTO 0.06 K/mm3 (0.00-0.23); BASOPHILS PERCENT AUTO 1 % (0-2); EOSINOPHILS ABSOLUTE AUTO 0.12 K/mm3 (0.00-0.68); EOSINOPHILS PERCENT AUTO 1 % (0-6); Hematocrit 41.5 % (33.0-51.0); Hemoglobin 13.1 g/dL (11.5-16.0); IMMATURE GRAN ABSOLUTE AUTO 0.06 K/mm3 (0.00-0.10); IMMATURE GRAN PERCENT AUTO 1 % (0-1); LYMPHOCYTES ABSOLUTE AUTO 2.17 K/mm3 (0.84-5.20); LYMPHOCYTES PERCENT AUTO 16 % (21-46); MONOCYTES ABSOLUTE AUTO 0.56 K/mm3 (0.16-1.47); MONOCYTES PERCENT AUTO 4 % (4-13); Mean Corpuscular HGB 27.8 pg (26.0-34.0); Mean Corpuscular HGB Conc 31.6 g/dL (31.5-36.5); Mean Corpuscular Volume 88 fL (80-100); Mean Platelet Volume 9.7 fL (9.1-12.4); NEUTROPHILS ABSOLUTE AUTO 10.36 K/mm3 (1.96-9.15); NEUTROPHILS PERCENT AUTO 78 % (41-73); Platelet Count 340 K/mm3 (150-400); RDW Coefficient Variation 17.5 % (11.7-14.2); RDW Standard Deviation 56.1 fL (35.1-46.3); Red Blood Cell Count 4.72 M/mm3 (3.80-5.20); White Blood Cell Count 13.33 K/mm3 (4.00-11.30)
[2022-03-21 17:22] LABS: Albumin, Blood 3.4 g/dL (3.4-5.0); Albumin/Globulin Ratio 0.7 (0.8-1.8); Bilirubin, Total 7.8 mg/dL (0.1-1.0); Bun/Creatinine Ratio 26.7 (12.0-20.0); Calcium, Blood 9.7 mg/dL (8.5-10.1); Creatinine, Blood 0.49 mg/dL (0.40-1.00); Globulin, Blood 4.8 g/dL (2.2-4.0); Potassium, Blood 4.1 mmol/L (3.5-5.5); Total Protein, Blood 8.2 g/dL (6.4-8.2)
[2022-03-21 17:31] LABS: Influenza A, PCR NEGATIVE (NEGATIVE); Influenza B, PCR NEGATIVE (NEGATIVE); Resp Syncytial Virus, PCR NEGATIVE (NEGATIVE); SARS-Cov-2 (COVID-19) PCR, MMC NEGATIVE (NEGATIVE)
== END 2022-03-21 17:45 | disposition left against medical advice (07) ==
LOC: ER 16:32
PROVIDERS: Physician Assistant
DX: R10.9 Unspecified abdominal pain (principal); R50.9 Fever, unspecified; Z53.21 Procedure and treatment not carried out due to patient leaving prior to being seen by health care provider; Z20.822 Contact with and (suspected) exposure to COVID-19
CPT/HCPCS: 0241U; 36415; 80053; 83690; 85025; 99281; A9270

== ENCOUNTER 2022-03-25 10:39 | Emergency (ER) | payer MEDICARE ==
[~2022-03-25] VITALS: Ht 170.2 cm; Wt 60.8 kg
[2022-03-25 11:28] LABS: BASOPHILS ABSOLUTE AUTO 0.05 K/mm3 (0.00-0.23); BASOPHILS PERCENT AUTO 1 % (0-2); EOSINOPHILS ABSOLUTE AUTO 0.15 K/mm3 (0.00-0.68); EOSINOPHILS PERCENT AUTO 2 % (0-6); Hematocrit 34.1 % (33.0-51.0); Hemoglobin 11.1 g/dL (11.5-16.0); IMMATURE GRAN ABSOLUTE AUTO 0.01 K/mm3 (0.00-0.10); IMMATURE GRAN PERCENT AUTO 0 % (0-1); LYMPHOCYTES ABSOLUTE AUTO 1.92 K/mm3 (0.84-5.20); LYMPHOCYTES PERCENT AUTO 31 % (21-46); MONOCYTES ABSOLUTE AUTO 0.33 K/mm3 (0.16-1.47); MONOCYTES PERCENT AUTO 5 % (4-13); Mean Corpuscular HGB 28.1 pg (26.0-34.0); Mean Corpuscular HGB Conc 32.6 g/dL (31.5-36.5); Mean Corpuscular Volume 86 fL (80-100); NEUTROPHILS ABSOLUTE AUTO 3.74 K/mm3 (1.96-9.15); NEUTROPHILS PERCENT AUTO 60 % (41-73); Platelet Count 256 K/mm3 (150-400); RDW Coefficient Variation 17.9 % (11.7-14.2); RDW Standard Deviation 56.8 fL (35.1-46.3); Red Blood Cell Count 3.95 M/mm3 (3.80-5.20)
[2022-03-25 11:46] LABS: Albumin/Globulin Ratio 0.7 (0.8-1.8); Bilirubin, Direct 1.6 mg/dL (0.0-0.3); Bilirubin, Indirect 0.6 mg/dL (0.1-0.7); Bilirubin, Total 2.2 mg/dL (0.1-1.0); Bun/Creatinine Ratio 48.8 (12.0-20.0); Calcium, Blood 8.9 mg/dL (8.5-10.1); Creatinine, Blood 0.47 mg/dL (0.40-1.00); Globulin, Blood 4.2 g/dL (2.2-4.0); Potassium, Blood 3.4 mmol/L (3.5-5.5); Total Protein, Blood 7.2 g/dL (6.4-8.2)
[2022-03-25] MEDS ORDERED: REMERON15 M9 PO (12:23)
[2022-03-25] MEDS ORDERED: ASPI81CH PO (12:23)
[2022-03-25 13:07] LABS: Source, Urine Voided
[2022-03-25 13:10] LABS: Appearance, Urine Hazy (Clear); Blood, Urine 1+ (Neg); Color, Urine Amber (P-Yellow); Glucose Qualitative, Urine Neg (Neg); Ketones, Urine 1+ (Neg); Leukocyte Esterase, Urine 2+ (Neg); Nitrite, Urine Neg (Neg); Protein, Urine 2+ (Neg); Specific Gravity, Urine 1.015 (1.003-1.022); Urobilinogen, Urine 3+ (Normal)
[2022-03-25 13:22] LABS: Bilirubin, Urine 2+ (Neg)
[2022-03-25 13:23] LABS: Calcium Oxalate Crystals Mod /hpf
[2022-03-25 13:24] LABS: Red Blood Cells, Urine 0-2 /hpf (0-2)
[2022-03-25 13:25] LABS: Bacteria Mod /hpf; Mucus Heavy (0-Heavy); Squamous Epithelial Cells Rare /hpf (Few)
[2022-03-25] MEDS ORDERED: CEPH500 PO (16:57)
== END 2022-03-25 17:31 | disposition home or self-care (01) ==
LOC: ER 10:39
PROVIDERS: Emergency Medicine; Physician Assistant
DX: R10.11 Right upper quadrant pain (principal); N39.0 Urinary tract infection, site not specified; I10 Essential (primary) hypertension; I25.10 Atherosclerotic heart disease of native coronary artery without angina pectoris; Z91.013 Allergy to seafood; Z88.8 Allergy status to other drugs, medicaments and biological substances
CPT/HCPCS: 36415; 74177; 80048; 80076; 81001; 83690; 85025; J0696; J1885; J2405; Q9967